=== PATIENT | male | born 1935 | race Caucasian/White ===

== ENCOUNTER 2023-10-21 12:02 | Emergency (ER) | payer MEDICARE, SELFPAY ==
[2023-10-21 12:13] VITALS: BP 157/90
--- NOTE | 2023-10-21 13:21 | ED.GENMED ---
History of Present Illness
General
Chief Complaint: Head Injury
Source: patient and spouse
Exam Limitations: none
Time Seen by Provider: 10/21/23 12:42
Nursing documentation reviewed up to this point in time: agreed with
Travel History
Have you had any contact with someone who has COVID-19?: No
Do you have any symptoms of coronavirus? Fever > 100 degrees, chills, cough, shortness of breath, sore throat, loss of taste or smell, muscle aches, or headache?: No
History of Present Illness
History of Present Illness:
88-year-old male past medical history of hypertension presenting to the emergency department after he got tripped up fell hit the back of his head did not lose consciousness otherwise feels well at this point. Denies additional concerns no numbness
or weakness no neck pain. Not on blood thinners.
Past History
Past History
ED Past Medical History: HTN, Hypercholesterolemia and Other (BPH)
ED Past Surgical History: Appendectomy, Orthopedic and Urological
Social History
Tobacco: Non-smoker
Alcohol: None
Drug: None
Personal:
Living: with family
Employment: Retired
Family History
Family History: Other (Nonsignificant)
Review of Systems
Review of Systems
Allergies reviewed?: Yes
All Other Systems: ROS reviewed and negative except as documented in HPI and ROS
Phy Exam
Physical Exam
Physical Exam:
GENERAL: Alert , in no apparent distress
EYE: pupils equal and reactive
NECK: Supple, no significant adenopathy.
ENT: Small abrasion to the posterior parietal scalp slightly to the right side very superficial no active bleeding no significant laceration. Very mild tenderness to the area o/p clr, mmm.
CARDIAC: Regular rate and rhythm .
LUNGS: Clear breath sounds bilaterally, no acute respiratory distress, no wheezes/rales/rhonchi
ABDOMEN: Soft, without focal tenderness, no r/g, no cvat
NEUROLOGICAL: Alert and oriented, no focal neuro deficits
SKIN: Warm and dry, skin intact.
MUSCULOSKELETAL: No edema, well perfused.
PSYCH: Normal and appropriate interaction.
Course
Orders/Labs/Results
Orders:
Orders
10/21/23 12:[address] [CT Head W/o Iv Contrast] Urgent
Comment:
Reason For Exam: fall with head strike
Vital Signs
Initial and Last Documented VS:
Initial Vital Signs
Temp Pulse Resp BP Pulse Ox
98.2 F 84 18 157/90 97
10/21/23 12:13 10/21/23 12:13 10/21/23 12:13 10/21/23 12:13 10/21/23 12:13
Last Documented Vital Signs
Temp Pulse Resp BP Pulse Ox
98.2 F 84 18 157/90 97
10/21/23 12:13 10/21/23 12:13 10/21/23 12:13 10/21/23 12:13 10/21/23 12:13
MDM/Problems Addressed
MDM/Problems Addressed:
80-year-old male presenting to the emergency department today after ground-level fall. Fall described as mechanical. Superficial abrasion to the back and head which was cleaned covered with antibiotic ointment CT scan without emergent findings
otherwise patient stable for discharge no emergent findings on physical examination as well. Return precautions given.
*Critical Care Note
Total Time (30-74mins, 75-104mins- exclusive of procedures): Not Applicable
ED Attending Note
-
Portions of this chart may have been created with voice recognition software.� Occasional wrong word or��sound alike� substitutions may have occurred due to the inherent limitations of voice recognition software.
Discharge Plan
Departure
Patient Disposition: Home (Routine Discharge)
Date of Disposition: 10/21/23
Time of Disposition: 13:21
Patient with high blood pressure during this ER visit?: No
Condition: Good
Covid-19: Not Applicable
Discharge Problem:
Fall, Abrasion of scalp
Instructions: Abrasions ED
Prescriptions:
No Action
atorvastatin 10 MG tablet
10 mg PO QPM
amlodipine 5 MG tablet
5 mg PO DAILY
lisinopril-hydrochlorothiazide 1 EACH tablet
1 ea PO DAILY
finasteride 5 MG tablet
5 mg PO DAILY
cyanocobalamin (vitamin B-12) 1,000 MCG tablet
1,000 mcg PO DAILY
folic acid 0.4 MG tablet
0.4 mg PO DAILY
pyridoxine (vitamin B6) 50 MG tablet
50 mg PO DAILY
multivitamin with folic acid [Tab-A-Ashley] 1 TABLET tablet
1 tab PO DAILY
albuterol sulfate 1 PUFF HFA aerosol inhaler
2 puff inhalation R Q4HPRN PRN (Reason: wheezing, SOB) Qty: 1 0RF
Referrals:
Bin Nieto MD [Family Provider] -
Activity Restrictions/Additional Instructions:
You came to the emergency department today with concerns of a fall. He had a CT scan without emergent findings. Please keep the abrasion clean and use antibiotic ointment on over the next few days. Return to the emergency department for any
worsening, new or concerning symptoms.
Discharge Date and Time
Print Language: [place]
== END 2023-10-21 13:35 | disposition home or self-care (01) ==
LOC: EMR 12:02
PROVIDERS: EMERGENCY PHYSICIAN Emergency Medicine; FAMILY PHYSICIAN Family Medicine
DX: S00.01XA Abrasion of scalp, initial encounter (principal); W01.0XXA Fall on same level from slipping, tripping and stumbling without subsequent striking against object, initial encounter; I10 Essential (primary) hypertension; E78.00 Pure hypercholesterolemia, unspecified; N40.0 Benign prostatic hyperplasia without lower urinary tract symptoms; Z96.652 Presence of left artificial knee joint; Z85.828 Personal history of other malignant neoplasm of skin
CPT/HCPCS: 99284; 70450

== ENCOUNTER → 2023-11-28 06:38 | Outpatient (REF) | payer MEDICARE, SELFPAY ==
[2023-11-28 08:34] LABS: ALT (SGPT) 32 U/L (0-50); AST (SGOT) 34 U/L (17-59); Albumin 3.5 g/dl (3.5-5.0); Alkaline Phosphatase 57 U/L (38-126); Blood Urea Nitrogen 19 mg/dl (9-20); Calcium 9.3 mg/dl (8.4-10.2); Carbon Dioxide 30 mmol/L (22-30); Chloride 102 mmol/L (98-107); Glucose 91 mg/dl (70-99); HDL Cholesterol 78 mg/dl; LDL Cholesterol, Calculated 50 mg/dl; Potassium 4.6 mmol/L (3.5-5.1); Sodium 136 mmol/L (135-145); Total Bilirubin 1.7 mg/dl (0.2-1.3); Total Cholesterol 140 mg/dl (50-199); Total Protein 5.7 g/dl (6.3-8.2); Triglyceride 61 mg/dl (10-149); Very Low Density Lipoprotein 12 mg/dl (0-30); eGFR > 60.00
== END ==
LOC: REG 06:38
PROVIDERS: ATTENDING PHYSICIAN Family Medicine
DX: E78.2 Mixed hyperlipidemia (principal)
CPT/HCPCS: 36415; 80053; 80061